=== PATIENT | female | born 1965 | race Caucasian/White ===

== ENCOUNTER 2018-02-24 13:27 | Emergency (ER) | payer OTHER ==
[~2018-02-24] VITALS: Ht 167.6 cm; Wt 77.1 kg
[~2018-02-24 13:27] MED LIST: BACLOFEN10 M1 PO; CYCLOBENZAPRINE10 M1 PO; DEXTROAMP-AMPHE20 M1 PO; DONEPEZIL HCL10 M1 PO; IBUPROFEN800 M1 PO; KETOROLAC TROME10 M1 PO; LYRICA100 M1 PO; NORCO 5-325 TA1 EACH PO; ORPHENADRINE C100 MG PO; OXCARBAZEPINE150 M1 PO; PERCOCET 10-321 EACH PO
[2018-02-24 14:05] VITALS: BP 146/97
== END 2018-02-24 18:10 | disposition admitted as inpatient to this hospital (09) ==
LOC: ERH 13:27
DX: M54.5 Low back pain (principal)